=== PATIENT | female | born 1960 | race Caucasian/White ===

== ENCOUNTER → 2025-09-08 09:12 | Outpatient (REF) | payer OTHER, SELFPAY | LOC: RAD 09:12 | PROVIDERS: ATTENDING PHYSICIAN Surgery | DX: Z98.890 Other specified postprocedural states (principal); Z87.19 Personal history of other diseases of the digestive system; K21.9 Gastro-esophageal reflux disease without esophagitis | CPT/HCPCS: 74246 ==

== ENCOUNTER 2025-10-01 06:11 | Day surgery (SDC) | payer OTHER, SELFPAY ==
[2025-10-01 13:35] VITALS: BMI 26.1
[2025-10-01 13:36] VITALS: BMI 26.1
[2025-10-01 13:37] VITALS: BP 127/81
[2025-10-01 15:38] VITALS: BP 107/95
[2025-10-01 15:45] VITALS: BP 125/83
[2025-10-01 16:00] VITALS: BP 124/91
[2025-10-01 16:15] VITALS: BP 117/73
== END 2025-10-01 16:27 | disposition home or self-care (01) ==
LOC: SDS 06:11
PROVIDERS: ATTENDING PHYSICIAN Surgery
DX: K44.9 Diaphragmatic hernia without obstruction or gangrene (principal); R13.10 Dysphagia, unspecified
CPT/HCPCS: 43249; C1726